=== PATIENT | male | born 1985 | race Caucasian/White ===

== ENCOUNTER 2019-05-30 11:29 | Emergency (ER) | payer OTHER ==
[~2019-05-30] VITALS: Ht 162.6 cm; Wt 81.6 kg
[2019-05-30 11:36] VITALS: BP 145/91
== END 2019-05-30 12:13 | disposition home or self-care (01) ==
LOC: ER 11:35
DX: S80.12XA Contusion of left lower leg, initial encounter (principal); V49.69XA Unspecified car occupant injured in collision with other motor vehicles in traffic accident, initial encounter; Y93.89 Activity, other specified; Y92.413 State road as the place of occurrence of the external cause; Y99.8 Other external cause status
CPT/HCPCS: 73590-TC